=== PATIENT | male | born 1990 | race Hispanic/Latino ===

== ENCOUNTER 2019-09-14 23:35 | Emergency (ER) | payer SELFPAY ==
[~2019-09-14] VITALS: Ht 172.7 cm; Wt 63.5 kg
[2019-09-15] MEDS ORDERED: BACITRACIN ZINC 0.9GM TP ONE ×2 (02:00→02:05)
[2019-09-15] MEDS ORDERED: LIDOCAINE 1% 5ML-MPF INJ ONE (02:00)
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
[2019-09-15 02:13] VITALS: BP 150/66
== END 2019-09-15 02:09 | disposition home or self-care (01) ==
LOC: FSED 09-15 01:36
DX: S81.012A Laceration without foreign body, left knee, initial encounter (principal); S70.311A Abrasion, right thigh, initial encounter; V27.4XXA Motorcycle driver injured in collision with fixed or stationary object in traffic accident, initial encounter; Y92.488 Other paved roadways as the place of occurrence of the external cause
CPT/HCPCS: 99282